=== PATIENT | female | born 1955 | race Caucasian/White ===

== ENCOUNTER 2021-01-10 20:34 | Emergency (ER) | payer MEDICARE ==
[2021-01-10 21:06] LABS: #Basophils 0.1 thou/uL (0.0-0.2); #Lymphocytes 0.7 thou/uL (1.20-3.40); #Neutrophils 7.8 thou/uL (1.40-6.50); %Basophils 0.9 % (0.0-1.0); %Eosinophils 0.4 % (0.0-10.0); %Lymphocytes 6.9 % (21.0-51.0); %Monocytes 10.6 % (0.0-10.0); %Neutrophils 81.3 % (42.0-75.0); Hemoglobin 12.8 g/dL (12.0-16.0); Mean Corpuscular HGB CONC 31.9 g/dL (32.0-36.0); Mean Corpuscular Hemoglobin 27.7 pg (27.0-31.0); Mean Corpuscular Volume 86.7 fL (78.0-98.0); Mean Platelet Volume 7.6 fL (7.4-10.4); Platelet Count 263 thou/uL (130-400); RBC Distribution Width 13.2 % (11.5-14.5); Red Blood Cell (RBC) Count 4.62 mill/uL (4.20-5.40); White Blood Cell (WBC) Count 9.7 thou/uL (4.8-10.8)
[2021-01-10 21:10] LABS: Anion Gap 12 mmol/L (10-20); BUN (Urea Nitrogen) 18 mg/dL (9.8-20.1); Calc. Creatinine Clearance 0 mL/min (70-130); Calcium 8.7 mg/dL (7.8-10.44); Carbon Dioxide 24 mmol/L (23-31); Chloride 109 mmol/L (98-107); Glucose 80 mg/dL (80-115); Potassium 3.7 mmol/L (3.5-5.1); Sodium 141 mmol/L (136-145)
== END 2021-01-10 22:05 | disposition home or self-care (01) ==
LOC: BURERS 20:34
DX: R55 Syncope and collapse (principal); E86.0 Dehydration; I10 Essential (primary) hypertension; M79.7 Fibromyalgia; Z79.899 Other long term (current) drug therapy
CPT/HCPCS: 80048; 85025; 93005